=== PATIENT | female | born 1970 | race Caucasian/White ===

== ENCOUNTER 2017-01-26 11:27 | Emergency (ER) | payer OTHER ==
[~2017-01-26] VITALS: Ht 157.5 cm; Wt 83.2 kg
[~2017-01-26 11:27] MED LIST: ACYC800T PO; DOCU-42 PO; HYDR1TAB69 PO; MOT200T1 PO
[2017-01-26 11:37] VITALS: BP 132/81; PULSE 82; RESP 17; O2SAT 99
--- NOTE | 2017-01-26 12:07 | ED.REPORT ---
HPI-Back Pain 40 and Over Date of Service Jan 26, 2017 ED Provider: History of Present Illness: back pain, hard to walk, started Wednesday. no bowel or bladder issues. sara is primary care. Sent here for back pain, x-rays normal today. Wants an MRI. hx of previous back pain last episode 5 months ago lasting a day or two. 10/10 400 mg ibuprofen and tylenol for the pain and flexeril injury. Nursing Notes Stated Complaint: BACK PAIN Chief Complaint: Back Pain or Injury Nursing Notes Reviewed: Yes Allergies: Coded Allergies: codeine (Verified Allergy, Unknown, 01/26/17) Uncoded Allergies: OPIATES (Allergy, Mild, emesis, 01/26/17) Scheduled Acyclovir-Expunged Drug, Do Not Renew! (Acyclovir-Expunged Drug, Do Not Renew!) 800 Mg Tablet 800 MG PO DAILY Docusate Sod-Expunged Drug, Do Not Renew! (Docusate Sod-Expunged Drug, Do Not Renew!) 100 Mg Capsule 100 MG PO DAILY Scheduled PRN Hydrocod/APAP-Expunged, Do Not Renew! (VICODIN 5/500-Expunged Drug, Do Not Renew ) 1 Each Tablet 1-2 EACH PO Q4 PRN PRN Ibuprofen-Expunged Drug, Do Not Renew! 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 Ambulatory Status Independent Review of Systems Basic Review of Systems Eyes: Vision NL, No discharge Endocrine: No cold intolerance, No heat intolerance, No weight gain, No weight loss Psychiatric: Normal thought content Physical Exam Initial Vital Signs Vital Signs (First) Date Time Temp Pulse Resp B/P Pulse Ox O2 Delivery O2 Flow Rate FiO2 01/26/17 11:37 36.5 82 17 132/81 99 Room Air Initial VS: Reviewed, Vital signs normal Head / Eyes: Atraumatic, Normocephalic, PERRL ENT: Mucous membranes moist, Conjunctiva normal, No scleral icterus Neck: Supple, Non-tender, Full range of motion Lymphatic: No lymphadenopathy Extremities: Vascular intact, Neuro intact, No swelling, No tenderness Skin: Warm, Dry, No cyanosis Psychiatric: Mood/affect normal, Behavior normal, Normal thought content General/Constitutional: Awake, Alert, No acute distress, Well appearing, Well developed, Well hydrated Respiratory / Chest: Atraumatic, Breath sounds NL, Breath sounds = bilat, No respiratory distress Cardiovascular: Heart rate NL, Regular rhythm, Heart sounds NL, No gallop Abdomen: Atraumatic, Soft, Non-tender Back: Atraumatic, Inspection NL muscle strength equal, no foot drop observed while walking to the restroom Neurologic: Oriented X3, Speech NL, No motor deficits, No sensory deficits, CN II - XII intact, Reflexes equal bilat Interpretation & Diagnostics Lab Results Interpretation Lab Results Interpretation: urine is negative Re-Eval/Medical Decision Med Decision/Clinical Course 46 year old female presents to the ER with 3 day hx of back pain. PAtient has been taking 400 mg of ibupfoen without relief. She does not desire opiates due to vomiting. Provided zofran and decadron. Patient reporting decrease in pain and increase in walking ability. Encouraged patient to return to primary care for ongoing treatment, consider physical therapy. Possible MRI if no improvement in 6 weeks. No sign of abscess Discharge & Departure Impression: Primary Impression: Low back pain Chronicity: acute Back pain laterality: right Sciatica presence: with sciatica Sciatica laterality: sciatica of right side Qualified Code: M54.41 - Lumbago with sciatica, right side Disposition: Home Patient Instructions: Lumbar Radiculopathy (ED), Acute Low Back Pain (ED), Sciatica (ED) Additional Instructions: The exam is reassuring. Your urine looks good. Need to use prednisone 40 mg daily for 3 days, then 30 mg daily for 3 days. then 20 mg daily for 3 days then 10 mg daily for 3 days. NEED to move! Do not stay in bed or sit in a chair for an extended period of time. This will make it worse. Can also use visteral to help relax muscles. 25 mg up to 3 times a day. At this time an MRI is not indicated. One can be ordered from primary care. If this does not improve over the course of 6 weeks an MRI might be indicated. Consider physical therapy. This can also be ordered from primary care. Note for off work provided. Referrals: Emmanuel Giang MD EDSupervising Provider for [facility]: Kaushik Raman MD copies to: Emmanuel Giang MD, Sue ARNP Jan 26, 2017 12:07
[2017-01-26] MEDS ORDERED: Dexamethasone 20 mg/2 mL Oral Solution PO ONE (12:20)
[2017-01-26 14:51] VITALS: BP 111/68; PULSE 72; RESP 16; O2SAT 100
== END 2017-01-26 14:51 | disposition home or self-care (01) ==
LOC: SED 11:27
DX: M54.41 Lumbago with sciatica, right side (principal); Z87.891 Personal history of nicotine dependence; Z88.5 Allergy status to narcotic agent